=== PATIENT | female | born 1960 | race Caucasian/White ===

== ENCOUNTER 2023-11-10 12:47 | Emergency (ER) | payer MEDICARE, OTHER, BC, SELFPAY ==
[2023-11-10 12:49] VITALS: BP 122/73; PULSE 69; RESP 16; TEMP 36.6; O2SAT 98
--- NOTE | 2023-11-10 13:45 | DI.RAD_ITS ---
Exam(s) XR WRIST RT COMPLETE EXAM: XR WRIST RT COMPLETE CLINICAL HISTORY: injury post op. TECHNIQUE: 2D digital imaging was performed. COMPARISON: No exams were available for comparison FINDINGS: 3 views There is no evidence of acute fracture nor dislocation nor significant ulnar variance. Some calcific ation is noted in the triangular fibrocartilage on the medial aspect of the wrist. Scaphoid and scap holunate distance are normal. There are no obvious degenerative changes in the carpal row bones. No erosions. No osseous lesions. No radiopaque foreign bodies. IMPRESSION: No acute osseous findings in the wrist. DATA REPOSITORY: RADIATION DOSE DELIVERED:
--- NOTE | 2023-11-11 17:02 | ED.GENADUL_ITS ---
Discharge Plan Disposition Patient Disposition: Home Condition: Stable Discharge Details Clinical Impression: Muscle strain of wrist Primary Care Provider: Dorina Pathak ED Provider: Rica Wallace Home Meds and New Rx's Prescriptions: Continued lisinopril 10 mg tablet 10 mg PO DAILY Discharge Instructions Additional Instructions: There is no evidence of fracture on your x-ray Follow-up at your post operative appt return earlier should you develop new or worsening complaints Referrals: Dorina Pathak [Primary Care Provider] - Discharge Data Discharge Date/Time-TO BE ENTERED AT DEPARTURE: 11/10/23 14:44 HPI General Date/Time Provider Initiated Documentation: 11/10/23 13:18 . HPI Narrative: 63-year-old female presents with right wrist pain after tripping over a curb while camping. She landed on her right hand and states she is concerned because she had carpal tunnel surgery last week. Denies any additional concerns. Denies any additional injuries. Related Data Home Medications ?Medication ?Instructions ?Recorded ?Confirmed lisinopril 10 mg tablet 10 mg PO DAILY 11/10/23 11/10/23 Allergies Allergy/AdvReac Type Severity Reaction Status Date / Time Penicillins Allergy Severe Anaphylaxis Unverified 11/10/23 13:17 Sulfa (Sulfonamide Allergy Severe Anaphylaxis Unverified 11/10/23 13:17 Antibiotics) tree nut Allergy Mild Anaphylaxis Unverified 11/10/23 13:17 General Stated Complaint: Orthopedic VARUN: 4 Exam Narrative Exam Narrative: Right wrist with volar surgical site, no dehiscence, no bleeding, range of motion and strength and sensation intact. Tenderness mildly tender last home nonfocal no Course Vital Signs Vital signs: Vital Signs Temperature 36.6 C 11/10/23 12:49 Pulse 69 11/10/23 12:49 Respiratory Rate 16 11/10/23 12:49 Blood Pressure 122/73 11/10/23 12:49 Pulse Oximetry 98 11/10/23 12:49 Temperature 36.6 C 11/10/23 12:49 Temperature Source Oral 11/10/23 12:49 Pulse 69 11/10/23 12:49 Respiratory Rate 16 11/10/23 12:49 Respiratory Effort Normal 11/10/23 12:53 Blood Pressure 122/73 11/10/23 12:49 Blood Pressure Position Sitting 11/10/23 12:49 Pulse Oximetry 98 11/10/23 12:49 Oxygen Delivery Method Room Air 11/10/23 12:49 Oxygen Flow Rate 0 11/10/23 12:49 Pain Level 4 11/10/23 13:12 Medical Decision Making 63-year-old female in no acute distress is well-healing and approximated postoperative site. X-ray per radiology interpretation my review does not show evidence of acute abnormality dressing reapplied and patient is encouraged to follow-up at her scheduled follow-up appointment on Wednesday. Precautions reviewed and patient expressed understanding. Quality:SDOH Health Related Social Needs: No Data to Display PFSH All Active Problems (Updated 11/10/23 @ 14:34 by FREDDY Reinoso) Muscle strain of wrist (Acute) Social History Smoking risk assessment performed?: No
== END 2023-11-10 14:44 | disposition home or self-care (01) ==
PROVIDERS: Emergency Provider Physician Assistant; PCP Family Medicine
DX: S66.911A Strain of unspecified muscle, fascia and tendon at wrist and hand level, right hand, initial encounter (principal); M25.531 Pain in right wrist; W10.1XXA Fall (on)(from) sidewalk curb, initial encounter; Z98.890 Other specified postprocedural states
CPT/HCPCS: 99283; 73110